=== PATIENT | female | born 1935 | race African-American/Black ===

== ENCOUNTER 2018-12-23 17:12 | Inpatient (IN) | payer MEDICARE, MEDICAID ==
[~2018-12-23] VITALS: Ht 170.2 cm; Wt 91.2 kg
[~2018-12-23 17:12] MED LIST: AMLO10TA4 PO; BENA20TA77 PO; CELE200C PO; CEN PO; ESOM40CA PO; FERR142T6 PO; HYDR1TAB4 PO; HYDR2TAB4 PO; LOV40 SQ; METF1000 PO; TYLENOL PO; [UNRECOGNIZED DRUG - OTHER] PO; [UNRECOGNIZED DRUG - OTHER] PO
[2018-12-23 18:51] LABS: HEMOGLOBIN. 10.6 g/dL (12.0-16.0); MEAN CORPUSCULAR HEMOGLOBIN 28.5 pg (28.0-32.0); MEAN CORPUSCULAR VOLUME 88.9 fL (81.0-99.0); PLATELET 263 x1000/uL (130-400); RED BLOOD CELL COUNT 3.72 mill/uL (4.2-5.4); RED CELL DISTRIBUTION WIDTH 15.8 % (11.6-14.6)
[2018-12-23 18:55] LABS: CHLORIDE 100 mEq/L (98-107)
[2018-12-23] MEDS ORDERED: FUROSEMIDE 100MG/10ML VIAL IV STA (19:16)
[2018-12-23 19:22] LABS: BG BASE EXCESS -4.4 mmol/L (-2.0-2.0); BG CARBOXYHEMOGLOBIN 0.4 % (0.5-1.5); BG DEOXYHEMOGLOBIN 4.3 % (0.0-5.0); BG FRACTION INSPIRED OXYGEN 100; BG HCO3 ACT 20.6 mmol/L (22.0-26.0); BG METHEMOGLOBIN 0.3 % (0.0-1.5); BG OXYGEN SATURATION 95.7 % (92.0-98.5); BG PCO2 37.5 mmHg (35.0-45.0); BG PH 7.358 (7.350-7.450); BG PO2 84.8 mmHg (75.0-100.0); BG SAMPLE SITE RIGHT RADIAL; BG VENT MODE MASK - NRB
[2018-12-23] MEDS ORDERED: DEXTROSE 50% WATER 50ML SYRINGE IV ONE (19:30)
[2018-12-23] MEDS ORDERED: INSULIN REGULAR (HUMULIN R) 300UNITS/3ML IV ONE (19:30)
[2018-12-23] MEDS ORDERED: SODIUM BICARBONATE 8.4% 1 MEQ/ML 50ML SYR IV ONE ×2 (19:30→20:24)
[2018-12-23] MEDS ORDERED: ALBUTEROL (0.083%) 2.5MG/3ML NEB HHN ONE (19:30)
[2018-12-23 19:57] LABS: PLATELET ESTIMATE NORMAL
[2018-12-23] MEDS ORDERED: LEVOFLOXACIN 500MG PREMIX 100 ML IV SCH (20:15)
[2018-12-23] MEDS ORDERED: HYDROCODONE/ACETAMINOPHEN 5/325MG TABLET PO PRN (20:15)
[2018-12-23] MEDS ORDERED: ACETAMINOPHEN 325MG TABLET PO PRN (20:15)
[2018-12-23] MEDS ORDERED: CLONIDINE 0.1MG TABLET PO PRN (20:15)
[2018-12-23] MEDS ORDERED: DOCUSATE SODIUM 100MG CAPSULE PO PRN (20:15)
[2018-12-23] MEDS ORDERED: ENOXAPARIN 60MG/0.6ML SYR SUBCUT ONE (20:15)
[2018-12-23] MEDS ORDERED: ONDANSETRON HCL 4MG/2ML INJ IV PRN (20:15)
[2018-12-23] MEDS ORDERED: DEXTROSE 50% WATER 50ML SYRINGE IV PRN (20:30)
[2018-12-24] VITALS (16 sets, daily range): BP systolic 106–149; BP diastolic 61–78
[2018-12-24] MEDS ORDERED: LEVOFLOXACIN 500MG PREMIX 100 ML IV SCH (01:00)
[2018-12-24] MEDS ORDERED: LORAZEPAM 2MG/ML CPJ IV PRN (03:15)
[2018-12-24] MEDS: IPRATROPIUM/ALBUTEROL 0.5-3(2.5)MG/3ML NEB INH SCH ×4 (03:20→20:03)
[2018-12-24 06:45] LABS: HEMATOCRIT. 27.5 % (36.0-48.0); HEMOGLOBIN. 8.8 g/dL (12.0-16.0); MEAN CORPUSCULAR HEMOGLOBIN 28.4 pg (28.0-32.0); MEAN CORPUSCULAR VOLUME 88.4 fL (81.0-99.0); MEAN PLATELET VOLUME 7.3 fl (7.4-10.4); PLATELET 239 x1000/uL (130-400); RED BLOOD CELL COUNT 3.11 mill/uL (4.2-5.4); RED CELL DISTRIBUTION WIDTH 15.3 % (11.6-14.6)
[2018-12-24] MEDS: BLOOD SUGAR DIAGNOSTIC STRIP TEST SCH ×4 (07:30→21:00)
[2018-12-24 07:38] LABS: PLATELET ESTIMATE NORMAL
[2018-12-24] MEDS: INSULIN LISPRO 100 UNITS/ML SUBCUT SCH ×4 (08:00→21:00)
[2018-12-24] MEDS ORDERED: ENOXAPARIN 30MG/0.3ML SYR SUBCUT SCH (09:00)
[2018-12-24 11:16] LABS: BG BASE EXCESS -3.2 mmol/L (-2.0-2.0); BG CARBOXYHEMOGLOBIN 0.1 % (0.5-1.5); BG DEOXYHEMOGLOBIN 3.8 % (0.0-5.0); BG FRACTION INSPIRED OXYGEN 100; BG HCO3 ACT 22.1 mmol/L (22.0-26.0); BG METHEMOGLOBIN 0.3 % (0.0-1.5); BG OXYGEN SATURATION 96.2 % (92.0-98.5); BG OXYHEMOGLOBIN 95.8 % (94.0-97.0); BG SAMPLE SITE RIGHT BRACHIAL; BG TOTAL HEMOGLOBIN 9.9 g/dL (12.0-18.0); BG VENT MODE MASK - NRB
[2018-12-24] MEDS ORDERED: SODIUM POLYSTYRENE SULFONATE 15 G/60 ML BOT PO NR (11:30)
[2018-12-24] MEDS ORDERED: DEXTROSE 50% WATER 50ML SYRINGE IV NR (11:30)
[2018-12-24] MEDS ORDERED: INSULIN REGULAR (HUMULIN R) UD 100 UNITS/ML SYR IV NR (11:30)
[2018-12-24] MEDS ORDERED: CALCIUM CHLORIDE 1,000 MG in DEXT 5% WATER 90 ML IV NR (11:30)
[2018-12-24] MEDS: PIPERACILLIN/TAZ 2.25G PREMIX 50 ML IV SCH ×2 (12:15→17:32)
[2018-12-24] MEDS: DEXT 5%/0.45% NACL 1000ML 1,000 ML IV SCH (12:17)
[2018-12-24] MEDS ORDERED: VANCOMYCIN 1250MG in DEXTROSE 5% WATER 250ML IV NR (12:30)
[2018-12-24] MEDS ORDERED: NYST15PO4 TP (15:56)
[2018-12-24] MEDS ORDERED: NIFE30TA83 MT (15:56)
[2018-12-24] MEDS ORDERED: APIX5TAB MT (16:05)
[2018-12-24] MEDS ORDERED: NIFEDIPINE PO (16:13)
[2018-12-24] MEDS ORDERED: MEDICATION NOT ON FORMULARY EA (Apixaban (Eliquis) 1 TAB) MT SCH (17:00)
[2018-12-24] MEDS ORDERED: FUROSEMIDE 20MG/2ML VIAL IVP NR (18:00)
[2018-12-24] MEDS: APIXABAN 5 MG TABLET PO SCH (18:20)
[2018-12-24 18:49] LABS: BG BASE EXCESS -2.9 mmol/L (-2.0-2.0); BG CARBOXYHEMOGLOBIN 0.2 % (0.5-1.5); BG DEOXYHEMOGLOBIN 2.5 % (0.0-5.0); BG FRACTION INSPIRED OXYGEN 100; BG HCO3 ACT 22.4 mmol/L (22.0-26.0); BG METHEMOGLOBIN 0.3 % (0.0-1.5); BG OXYGEN SATURATION 97.5 % (92.0-98.5); BG PH 7.356 (7.350-7.450); BG PO2 106.5 mmHg (75.0-100.0); BG SAMPLE SITE RIGHT BRACHIAL; BG TOTAL HEMOGLOBIN 9.8 g/dL (12.0-18.0); BG VENT MODE MASK - BIPAP; BG VENT RATE 20 set
[2018-12-25] VITALS (19 sets, daily range): BP systolic 118–155; BP diastolic 35–80
[2018-12-25] MEDS: IPRATROPIUM/ALBUTEROL 0.5-3(2.5)MG/3ML NEB INH SCH ×7 (00:24→23:55)
[2018-12-25] MEDS ORDERED: DILTIAZEM HCL 5MG/ML 5ML VIAL IV SCH (01:30)
[2018-12-25] MEDS: PIPERACILLIN/TAZ 2.25G PREMIX 50 ML IV SCH ×3 (02:31→17:02)
[2018-12-25] MEDS: TRAMADOL 50MG TABLET PO PRN ×2 (02:36→08:42)
[2018-12-25] MEDS: DEXT 5%/0.45% NACL 1000ML 1,000 ML IV SCH ×2 (03:18→18:57)
[2018-12-25] MEDS: DILTIAZEM HCL 125 MG in DEXT 5% WATER 100 ML IV SCH ×2 (03:19→17:01)
[2018-12-25] MEDS: BLOOD SUGAR DIAGNOSTIC STRIP TEST SCH ×5 (07:36→21:53)
[2018-12-25 07:52] LABS: HEMATOCRIT. 27.4 % (36.0-48.0); HEMOGLOBIN. 8.9 g/dL (12.0-16.0); MEAN CORPUSCULAR HEMOGLOBIN 28.8 pg (28.0-32.0); MEAN CORPUSCULAR VOLUME 88.8 fL (81.0-99.0); MEAN PLATELET VOLUME 7.3 fl (7.4-10.4); PLATELET 251 x1000/uL (130-400); RED BLOOD CELL COUNT 3.09 mill/uL (4.2-5.4); RED CELL DISTRIBUTION WIDTH 15.4 % (11.6-14.6)
[2018-12-25] MEDS: INSULIN LISPRO 100 UNITS/ML SUBCUT SCH ×5 (08:00→21:52)
[2018-12-25] MEDS: APIXABAN 5 MG TABLET PO SCH ×2 (08:38→17:01)
[2018-12-25] MEDS: NIFEDIPINE XL 30MG TAB PO SCH (08:38)
[2018-12-25 08:49] LABS: BG BASE EXCESS -1.6 mmol/L (-2.0-2.0); BG CARBOXYHEMOGLOBIN 0.3 % (0.5-1.5); BG DEOXYHEMOGLOBIN 6.9 % (0.0-5.0); BG FRACTION INSPIRED OXYGEN 100; BG HCO3 ACT 23.1 mmol/L (22.0-26.0); BG METHEMOGLOBIN 0.9 % (0.0-1.5); BG OXYHEMOGLOBIN 91.9 % (94.0-97.0); BG PCO2 39.1 mmHg (35.0-45.0); BG PO2 68.4 mmHg (75.0-100.0); BG SAMPLE SITE RIGHT BRACHIAL; BG VENT MODE MASK - NRB
[2018-12-25] MEDS ORDERED: NIFEDIPINE 30 MG PO SCH (09:00)
[2018-12-25] MEDS ORDERED: NEPVIT PO (10:14)
[2018-12-25] MEDS ORDERED: MULT1TAB67 PO (10:14)
[2018-12-25] MEDS ORDERED: OMEP20CA10 PO (10:14)
[2018-12-25] MEDS ORDERED: LIDO5CRE18 TP (10:14)
[2018-12-25] MEDS ORDERED: SITA100T11 PO (10:14)
[2018-12-25] MEDS ORDERED: ECON15CR11 TP (10:17)
[2018-12-25] MEDS ORDERED: DICL100G31 TP (10:17)
[2018-12-25] MEDS ORDERED: GUAI600T88 PO (10:17)
[2018-12-25] MEDS ORDERED: HYDROCODONE/ACETAMINOPHEN 5/325MG TABLET PO PRN (10:30)
[2018-12-25] MEDS ORDERED: LORAZEPAM 2MG/ML CPJ IV PRN (10:45)
[2018-12-25] MEDS ORDERED: VANCOMYCIN 1 G PREMIX 200 ML IV NR (12:00)
[2018-12-25] MEDS: NYSTATIN POWDER 15GM TOP SCH ×2 (15:08→17:04)
[2018-12-25] MEDS ORDERED: TRAMADOL 50MG TABLET PO PRN (16:30)
[2018-12-25 18:44] LABS: BG BASE EXCESS -4.4 mmol/L (-2.0-2.0); BG BILEVEL POS AIRWAY PRESSURE 20/5; BG CARBOXYHEMOGLOBIN 0.3 % (0.5-1.5); BG FRACTION INSPIRED OXYGEN 100; BG HCO3 ACT 21.2 mmol/L (22.0-26.0); BG METHEMOGLOBIN 0.2 % (0.0-1.5); BG OXYGEN SATURATION 84.9 % (92.0-98.5); BG OXYHEMOGLOBIN 84.5 % (94.0-97.0); BG PCO2 41.1 mmHg (35.0-45.0); BG SAMPLE SITE RIGHT BRACHIAL; BG TOTAL HEMOGLOBIN 10.4 g/dL (12.0-18.0); BG VENT MODE MASK - BIPAP
[2018-12-25 21:24] LABS: BG BASE EXCESS -3.2 mmol/L (-2.0-2.0); BG BILEVEL POS AIRWAY PRESSURE 15/5; BG CARBOXYHEMOGLOBIN 0.2 % (0.5-1.5); BG FRACTION INSPIRED OXYGEN 100; BG HCO3 ACT 22.2 mmol/L (22.0-26.0); BG METHEMOGLOBIN 0.3 % (0.0-1.5); BG OXYHEMOGLOBIN 90.5 % (94.0-97.0); BG PCO2 41.2 mmHg (35.0-45.0); BG PO2 62.9 mmHg (75.0-100.0); BG SAMPLE SITE RIGHT RADIAL; BG VENT MODE MASK - BIPAP; BG VENT RATE 24 set
[2018-12-25] MEDS: LEVOFLOXACIN 250MG PREMIX 50 ML IV SCH ×2 (21:51→21:55)
[2018-12-26] VITALS (13 sets, daily range): BP systolic 101–134; BP diastolic 61–81
[2018-12-26] MEDS ORDERED: VANCOMYCIN 750 MG PREMIX 150 ML IV SCH (01:00)
[2018-12-26] MEDS: PIPERACILLIN/TAZ 2.25G PREMIX 50 ML IV SCH ×3 (02:37→18:35)
[2018-12-26] MEDS: DILTIAZEM HCL 125 MG in DEXT 5% WATER 100 ML IV SCH (02:39)
[2018-12-26] MEDS: IPRATROPIUM/ALBUTEROL 0.5-3(2.5)MG/3ML NEB INH SCH ×5 (04:02→20:33)
[2018-12-26 06:37] LABS: BASOPHILS % 0.2 % (0.0-2.0); EOSINOPHILS % 1.8 % (0.0-5.0); HEMOGLOBIN. 9.5 g/dL (12.0-16.0); LYMPHOCYTES % 9.7 % (20.0-50.0); MEAN CORPUSCULAR HEMOGLOBIN 28.1 pg (28.0-32.0); MEAN CORPUSCULAR VOLUME 88.7 fL (81.0-99.0); MEAN PLATELET VOLUME 7.5 fl (7.4-10.4); MONOCYTES % 13.9 % (2.0-8.0); NEUTROPHILS % 74.4 % (40.0-76.0); PLATELET 285 x1000/uL (130-400); RED BLOOD CELL COUNT 3.38 mill/uL (4.2-5.4); RED CELL DISTRIBUTION WIDTH 15.3 % (11.6-14.6)
[2018-12-26 07:01] LABS: PLATELET ESTIMATE NORMAL
[2018-12-26 07:46] LABS: BG BILEVEL POS AIRWAY PRESSURE 15/5; BG DEOXYHEMOGLOBIN 6.7 % (0.0-5.0); BG METHEMOGLOBIN 0.2 % (0.0-1.5); BG OXYGEN SATURATION 93.3 % (92.0-98.5); BG OXYHEMOGLOBIN 93.1 % (94.0-97.0); BG PCO2 38.1 mmHg (35.0-45.0); BG PH 7.359 (7.350-7.450); BG PO2 71.4 mmHg (75.0-100.0); BG SAMPLE SITE RIGHT BRACHIAL; BG TOTAL HEMOGLOBIN 10.1 g/dL (12.0-18.0); BG VENT MODE MASK - BIPAP; BG VENT RATE 24 set
[2018-12-26] MEDS: MORPHINE SULFATE 4 MG/ML CPJ (NOT FOR IM USE) IV PRN ×4 (09:13→22:02)
[2018-12-26] MEDS ORDERED: PANTOPRAZOLE SODIUM 40 MG/VIAL IV NR (09:45)
[2018-12-26] MEDS: NYSTATIN POWDER 15GM TOP SCH ×3 (09:59→18:35)
[2018-12-26] MEDS: NIFEDIPINE XL 30MG TAB PO SCH (09:59)
[2018-12-26] MEDS: APIXABAN 5 MG TABLET PO SCH ×2 (09:59→18:35)
[2018-12-26] MEDS: DEXT 5%/0.45% NACL 1000ML 1,000 ML IV SCH ×2 (10:00→21:33)
[2018-12-26] MEDS: DILTIAZEM HCL 90MG TABLET PO SCH ×3 (12:48→23:51)
[2018-12-26] MEDS: INSULIN LISPRO 100 UNITS/ML SUBCUT SCH ×3 (12:49→21:00)
[2018-12-26] MEDS: BLOOD SUGAR DIAGNOSTIC STRIP TEST SCH ×3 (12:49→21:10)
[2018-12-26] MEDS ORDERED: MORPHINE SULFATE 100 MG in DEXT 5% WATER 90 ML IV PRN (14:00)
[2018-12-26] MEDS ORDERED: LORAZEPAM 2MG/ML CPJ IV PRN (14:00)
[2018-12-26] MEDS ORDERED: MAGNESIUM 2 G PREMIX 50 ML IV SCH (15:00)
[2018-12-26] MEDS: MULTIVITAMINS,THER W-MINERALS TABLET PO SCH (15:13)
[2018-12-26] MEDS: MONTELUKAST SODIUM 10MG TABLET PO SCH (18:35)
[2018-12-27] VITALS (10 sets, daily range): BP systolic 110–158; BP diastolic 58–118
[2018-12-27] MEDS: IPRATROPIUM/ALBUTEROL 0.5-3(2.5)MG/3ML NEB INH SCH ×2 (00:08→04:04)
[2018-12-27] MEDS ORDERED: VANCOMYCIN 1 G PREMIX 200 ML IV SCH (00:30)
[2018-12-27] MEDS: MORPHINE SULFATE 4 MG/ML CPJ (NOT FOR IM USE) IV PRN ×4 (01:15→07:26)
[2018-12-27] MEDS: PIPERACILLIN/TAZ 2.25G PREMIX 50 ML IV SCH ×2 (01:17→10:13)
[2018-12-27] MEDS: DILTIAZEM HCL 90MG TABLET PO SCH ×2 (05:33→06:00)
[2018-12-27 06:02] LABS: HEMOGLOBIN. 9.9 g/dL (12.0-16.0); MEAN CORPUSCULAR HEMOGLOBIN 28.2 pg (28.0-32.0); MEAN CORPUSCULAR VOLUME 88.1 fL (81.0-99.0); MEAN PLATELET VOLUME 7.5 fl (7.4-10.4); PLATELET 303 x1000/uL (130-400); RED BLOOD CELL COUNT 3.52 mill/uL (4.2-5.4); RED CELL DISTRIBUTION WIDTH 15.6 % (11.6-14.6)
[2018-12-27 06:08] LABS: CHLORIDE 98 mEq/L (98-107)
[2018-12-27 06:17] LABS: CREATINE KINASE 96 IU/L (26-192)
[2018-12-27 06:19] LABS: CREATINE KINASE MB FRACTION 1.3 ng/mL (0.5-3.6)
[2018-12-27 06:48] LABS: BG BASE EXCESS -2.9 mmol/L (-2.0-2.0); BG BILEVEL POS AIRWAY PRESSURE 15/5; BG CARBOXYHEMOGLOBIN 0.3 % (0.5-1.5); BG DEOXYHEMOGLOBIN 10.8 % (0.0-5.0); BG HCO3 ACT 22.4 mmol/L (22.0-26.0); BG METHEMOGLOBIN 0.2 % (0.0-1.5); BG OXYGEN SATURATION 89.1 % (92.0-98.5); BG OXYHEMOGLOBIN 88.7 % (94.0-97.0); BG PCO2 40.9 mmHg (35.0-45.0); BG PH 7.357 (7.350-7.450); BG PO2 61.6 mmHg (75.0-100.0); BG SAMPLE SITE RIGHT RADIAL; BG TOTAL HEMOGLOBIN 10.8 g/dL (12.0-18.0); BG VENT MODE MASK - BIPAP; BG VENT RATE 24 set
[2018-12-27] MEDS: DILTIAZEM HCL 125 MG in DEXT 5% WATER 100 ML IV SCH (07:49)
[2018-12-27] MEDS: IPRATROPIUM BROMIDE (0.02%) 0.5MG/2.5ML NEB HHN SCH ×3 (08:12→15:38)
[2018-12-27] MEDS: BLOOD SUGAR DIAGNOSTIC STRIP TEST SCH (08:26)
[2018-12-27] MEDS: NYSTATIN POWDER 15GM TOP SCH ×3 (09:00→17:00)
[2018-12-27] MEDS ORDERED: PANTOPRAZOLE SODIUM 40 MG/VIAL IV SCH (09:00)
[2018-12-27] MEDS: MULTIVITAMINS,THER W-MINERALS TABLET PO SCH (09:00)
[2018-12-27] MEDS: APIXABAN 5 MG TABLET PO SCH ×2 (09:00→17:00)
[2018-12-27] MEDS ORDERED: MORPHINE SULFATE 250 MG in DEXT 5% WATER 240 ML IV PRN (09:15)
[2018-12-27] MEDS ORDERED: MORPHINE SULFATE 4 MG/ML CPJ (NOT FOR IM USE) IV NR (09:15)
[2018-12-27] MEDS: INSULIN LISPRO 100 UNITS/ML SUBCUT SCH (09:17)
[2018-12-27] MEDS ORDERED: MORPHINE (DRIP)100 MG in DEXT 5% WATER 100ML IV SCH (10:30)
[2018-12-27 11:39] LABS: PLATELET ESTIMATE NORMAL
[2018-12-27] MEDS ORDERED: LABETALOL 5MG/ML SYR 20 MG/4 ML SYRINGE IV PRN (13:45)
[2018-12-27] MEDS ORDERED: HYDROCODONE/ACETAMINOPHEN 10/325MG TABLET PO PRN (16:45)
[2018-12-27] MEDS: MONTELUKAST SODIUM 10MG TABLET PO SCH (17:00)
== END 2018-12-27 18:59 | disposition expired ==
LOC: ER 17:12 → 5EST 20:22 → ENRESERV 21:17
PROVIDERS: ADMIT Internal Medicine Geriatric Medicine; ATTEND Internal Medicine Geriatric Medicine
PROC: 5A09357 Assistance with Respiratory Ventilation, Less than 24 Consecutive Hours, Continuous Positive Airway Pressure (ICD-10-PCS; principal; 2018-12-24)
PROC: 5A09457 Assistance with Respiratory Ventilation, 24-96 Consecutive Hours, Continuous Positive Airway Pressure (ICD-10-PCS; 2018-12-25)
DX: I11.0 Hypertensive heart disease with heart failure (principal); J96.21 Acute and chronic respiratory failure with hypoxia; I21.4 Non-ST elevation (NSTEMI) myocardial infarction; N17.0 Acute kidney failure with tubular necrosis; E87.1 Hypo-osmolality and hyponatremia; E87.2 Acidosis; C34.90 Malignant neoplasm of unspecified part of unspecified bronchus or lung; C79.9 Secondary malignant neoplasm of unspecified site; D68.59 Other primary thrombophilia; E44.1 Mild protein-calorie malnutrition; I50.41 Acute combined systolic (congestive) and diastolic (congestive) heart failure; E87.5 Hyperkalemia; E83.52 Hypercalcemia; E11.9 Type 2 diabetes mellitus without complications; Z96.652 Presence of left artificial knee joint; K57.90 Diverticulosis of intestine, part unspecified, without perforation or abscess without bleeding; I27.20 Pulmonary hypertension, unspecified; I48.0 Paroxysmal atrial fibrillation; K21.0 Gastro-esophageal reflux disease with esophagitis; F41.1 Generalized anxiety disorder; D64.9 Anemia, unspecified; E11.51 Type 2 diabetes mellitus with diabetic peripheral angiopathy without gangrene; I49.3 Ventricular premature depolarization; Z51.5 Encounter for palliative care; Z66 Do not resuscitate; Z85.118 Personal history of other malignant neoplasm of bronchus and lung; Z86.718 Personal history of other venous thrombosis and embolism; Z90.49 Acquired absence of other specified parts of digestive tract; Z90.710 Acquired absence of both cervix and uterus; Z68.31 Body mass index [BMI] 31.0-31.9, adult; Z79.899 Other long term (current) drug therapy; Z79.1 Long term (current) use of non-steroidal anti-inflammatories (NSAID); Z79.84 Long term (current) use of oral hypoglycemic drugs; Z92.21 Personal history of antineoplastic chemotherapy
CPT/HCPCS: 36415; 36600; 71045; 76770; 78580; 80048; 80202; 82375; 82550; 82553; 82805; 82962; 83735; 83880; 84443; 84484; 93005; 93306; 93970; 94640; 94660; 96374; 96375; 99285; C9113; J1650; J1815; J1940; J1956; J2060; J2270; J2405; J2543; J3370; J3475; J3490; J7060; J7611; J7620